=== PATIENT | female | born 1985 | race Asian ===

== ENCOUNTER 2021-11-04 16:57 | Emergency (ER) | payer OTHER ==
[~2021-11-04] VITALS: Ht 160 cm; Wt 57.2 kg
[2021-11-04 17:01] VITALS: BP_SYST 122
--- NOTE | 2021-11-04 17:10 | NUR ---
Patient to ER bed 07 to gown for evaluation. Side rails up. Report given to MAHESH Villegas and Hannah RN
--- NOTE | 2021-11-04 17:17 | NUR ---
ER Dr. Baker at bedside examining patient.
--- NOTE | 2021-11-04 17:20 | NUR ---
PT came in from home with c/o lower right abdominal pain that started 2 weeks ago and stated it is a 7/10. Pt reports a past medical history of left ovarian cyst, anxiety, depression, and a pervious right breast cyst. Patient on monitor and safety precautions are in place.
[2021-11-04 17:28] LABS: BILIRUBIN,URINE NEGATIVE (NEGATIVE); COLOR,URINE YELLOW (YELLOW); GLUCOSE,URINE NEGATIVE (NEGATIVE); KETONES,URINE NEGATIVE (NEGATIVE); LEUKOCYTE ESTERASE ,URINE 1+ (NEGATIVE); NITRITE, URINE NEGATIVE (NEGATIVE); PH,URINE 6.5 (5.0-8.0); PROTEIN URINE TRACE (NEGATIVE); UROBILINOGEN,URINE 0.2 (0.2-1.0)
[2021-11-04 17:29] LABS: BLOOD, URINE TRACE (NEGATIVE); CLARITY/URINE HAZY (CLEAR)
[2021-11-04 17:36] LABS: BACTERIA,URINE MODERATE /HPF (None Seen); RBC,URINE 0-3 /HPF (0-3)
[2021-11-04 17:37] LABS: MUCUS,URINE 1+ /LPF (None Seen)
[2021-11-04 19:05] LABS: BASOPHILS % (AUTO) 0.9 % (0.0-2.0); EOSINOPHILS # (AUTO) 0.2 K/uL (0.0-0.4); EOSINOPHILS % (AUTO) 3.2 % (0.0-4.0); HEMATOCRIT 41.1 % (36-48); HEMOGLOBIN 13.9 g/dL (12.0-16.0); LYMPHOCYTES # (AUTO) 1.4 K/uL (1.0-5.5); LYMPHOCYTES % (AUTO) 26.3 % (20.5-51.5); MEAN CORPUSCULAR HEMOGLOBIN 31 pg (27-31); MEAN CORPUSCULAR HGB CONC 34 % (32-36); MEAN CORPUSCULAR VOLUME 91 fL (79.0-98.0); MONOCYTES # (AUTO) 0.5 K/uL (0.0-1.0); MONOCYTES % (AUTO) 8.7 % (1.7-9.3); NEUTROPHILS # (AUTO) 3.2 K/uL (1.8-7.7); NEUTROPHILS % (AUTO) 60.9 % (40.0-70.0); PLATELET COUNT (AUTO) 269 K/uL (130-430); RED BLOOD CELL COUNT(AUTO) 4.51 MIL/uL (4.2-6.2); RED CELL DISTRIBUTION WIDTH 13.2 % (9.0-15.0); WHITE BLOOD COUNT (AUTO) 5.2 K/uL (4.8-10.8)
--- NOTE | 2021-11-04 19:13 | NUR ---
Patient resting in bed and denies pain. Friend at bedside.
[2021-11-04 19:21] LABS: C-REACTIVE PROTEIN QUANT < 0.2 mg/dL (0-0.5)
[2021-11-04 19:22] LABS: ANION GAP 5 (5-15); CALCIUM 8.7 mg/dL (8.4-11.0); CHLORIDE 104 mmol/L (98-107); CREATININE 0.73 mg/dL (0.55-1.30); GLUCOSE 89 mg/dL (70-99); POTASSIUM 4.3 mmol/L (3.5-5.1); SODIUM SERUM 139 mmol/L (136-145); UREA NITROGEN, BLOOD 10 mg/dL (8-21)
[2021-11-04 19:23] LABS: GFR AFRICAN AMERICAN 117 mL/min (>90)
[2021-11-04 19:26] LABS: ALANINE AMINOTRANSFERASE 26 U/L (12-78); ALBUMIN 3.9 g/dL (3.4-4.8); AMYLASE 63 U/L (0-100); ASPARTATE AMINOTRANSFERASE 15 U/L (10-37); LIPASE 168 U/L (73-393); TOTAL BILIRUBIN 0.5 mg/dL (0.0-1.0)
--- NOTE | 2021-11-04 19:28 | NUR ---
Report given to Mohit ARAGON.
[2021-11-04 20:05] VITALS: BP_SYST 125
--- NOTE | 2021-11-04 20:05 | NUR ---
Patient given written and verbal discharge instructions and verbalizes understanding. ER MD discussed with patient the results and treatment provided. Patient in stable condition. ID arm band removed. Patient educated on pain management and to follow up with PMD..Opportunity for questions provided and answered.
== END 2021-11-04 20:05 | disposition home or self-care (01) ==
LOC: EDSEX 16:57 → SED 16:57
DX: R10.31 Right lower quadrant pain (principal)
CPT/HCPCS: 36415; 76376; 80053; 81000; 81025; 82150; 83690; 84703; 85025; 86140; 87086; 99284